=== PATIENT | male | born 1980 | race African-American/Black ===

== ENCOUNTER 2017-01-13 10:43 | Emergency (ER) | payer MEDICAID ==
[~2017-01-13] VITALS: Ht 175.3 cm; Wt 83.0 kg
[2017-01-13 12:08] LABS: BLOOD UREA NITROGEN 9 mg/dL (7-18)
[2017-01-13 12:38] VITALS: BP 159/106
== END 2017-01-13 12:41 | disposition home or self-care (01) ==
LOC: ED 11:16
DX: R00.2 Palpitations (principal)
CPT/HCPCS: 36415; 80048; 82040; 85025; 93005

== ENCOUNTER 2019-02-12 21:50 | Inpatient (IN) | payer MEDICAID ==
[~2019-02-12] VITALS: Ht 167.6 cm; Wt 89.8 kg
[2019-02-12 23:00] VITALS: BP_SYST 122; BP_SYST 128; BP_SYST 145; BP_DIAS 68; BP_DIAS 76; BP_DIAS 81
[2019-02-12] MEDS ORDERED: BISACODYL 10 MG SUPP PR PRN (23:00)
[2019-02-12] MEDS ORDERED: POLYETHYLENE GLYCOL 17 GM PACKET PO PRN (23:00)
[2019-02-12] MEDS ORDERED: ACETAMINOPHEN 325 MG TABLET PO PRN (23:00)
[2019-02-12] MEDS ORDERED: PLEASE ENTER ALLERGIES MC SCH (23:30)
[2019-02-12] MEDS ORDERED: PLEASE ENTER HEIGHT AND WEIGHT MC SCH (23:30)
[2019-02-12 23:46] LABS: BASOPHILS # (AUTO) 0.02 x10^3/uL (0-0.1); BASOPHILS % (AUTO) 0 % (0-1); EOSINOPHILS # (AUTO) 0.14 x10^3/uL (0-0.4); EOSINOPHILS % (AUTO) 3 % (1-7); LYMPHOCYTES # (AUTO) 1.85 x10^3/uL (1-3.4); LYMPHOCYTES % (AUTO) 35 % (22-44); MD NO; MEAN CORPUSCULAR HEMOGLOBIN 31.2 pg (27.5-34.5); MEAN CORPUSCULAR HGB CONC 32.7 g/dL (33.2-36.2); MEAN CORPUSCULAR VOLUME 95.5 fL (81-97); MEAN PLATELET VOLUME 6.5 fL (7.4-10.4); MONOCYTES # (AUTO) 0.53 x10^3/uL (0.2-0.8); MONOCYTES % (AUTO) 10 % (2-9); NEUTROPHILS # (AUTO) 2.76 x10^3/uL (1.8-6.8); NEUTROPHILS % (AUTO) 52 % (42-75); PLATELET COUNT 270 x10^3/uL (130-400); RED BLOOD COUNT 3.79 x10^6/uL (4.38-5.82); RED CELL DISTRIBUTION WIDTH 13.5 % (9.4-14.8)
[2019-02-13] LABS: ALBUMIN 3.5 g/dL (3.4-5.0); ANION GAP 9 mmol/L (5-15); CALCIUM 9.4 mg/dL (8.5-10.1); CHLORIDE 105 mmol/L (98-107)
[2019-02-13] MEDS ORDERED: HALOPERIDOL 1 MG TABLET PO SCH
[2019-02-13 00:05] VITALS: BP 122/68
[2019-02-13 00:07] LABS: ALANINE AMINOTRANSFERASE 21 U/L (12-78); ALKALINE PHOSPHATASE 56 U/L (45-117); BILIRUBIN,TOTAL 0.3 mg/dL (0.2-1.0); CHOL/HDL RATIO 3.5; CHOLESTEROL, TOTAL 101 mg/dL (140-239); FREE T4 (FREE THYROXINE) 0.89 ng/dL (0.76-1.46); HDL CHOL % 29 % (26-37); HDL CHOLESTEROL (DIRECT) 29 mg/dL (40-60); LDL CHOLESTEROL,CALCULATED 43 mg/dL (54-169); LDL/HDL RATIO 1.5 (0.5-3.0); TOTAL PROTEIN 7.3 g/dL (6.4-8.2); TRIGLYCERIDES 146 mg/dL (50-200); VLDL CHOLESTEROL 29 mg/dL (0-25)
[2019-02-13] MEDS ORDERED: HALOPERIDOL 2 MG/ML ORAL SOL PO SCH (00:30)
[2019-02-13 00:39] LABS: HCT (SEDRATE) 36.2 % (39.2-51.8)
[2019-02-13] MEDS: OLANZAPINE ODT 10MG PO SCH ×2 (00:44→21:48)
[2019-02-13] MEDS: DIVALPROEX 500 MG TAB.ER.24H PO SCH ×2 (00:44→21:49)
[2019-02-13] MEDS ORDERED: METF500T17 PO (02:17)
[2019-02-13] MEDS ORDERED: LEVO25TA2 PO (02:17)
[2019-02-13] MEDS ORDERED: ROSU20TA2 PO (02:17)
[2019-02-13] MEDS ORDERED: DIVA500T4 PO (02:17)
[2019-02-13] MEDS ORDERED: TRAZ-96 PO (02:17)
[2019-02-13] MEDS ORDERED: ASPI81TA45 PO (02:17)
[2019-02-13] MEDS ORDERED: OLAN10TA3 PO (02:17)
[2019-02-13] MEDS ORDERED: LISI10TA2 PO (02:17)
[2019-02-13] MEDS ORDERED: HALO5AMP3 PO (02:17)
[2019-02-13 06:14] LABS: MICROSCOPIC NOT IND
[2019-02-13 06:19] LABS: CULTURE INDICATED? NO
[2019-02-13 06:26] LABS: AMPHETAMINE SCREEN, URINE Negative (Negative); BARBITURATE SCREEN, URINE Negative (Negative); BENZODIAZEPINE SCREEN, URINE Negative (Negative); CANNABINOID SCREEN, URINE Negative (Negative); COCAINE SCREEN, URINE Negative (Negative); METHADONE SCREEN, URINE Negative (Negative); OPIATE SCREEN, URINE Negative (Negative)
[2019-02-13 07:31] VITALS: BP 115/72
[2019-02-13] MEDS: SENNA/DOCUSATE TABLET PO SCH (08:50)
[2019-02-13 19:18] VITALS: BP 133/83
[2019-02-13] MEDS: TRAZODONE 100MG TABLET PO SCH ×2 (21:00)
[2019-02-13] MEDS: HALOPERIDOL 2 MG/ML ORAL SOL PO SCH (21:49)
[2019-02-14] MEDS: LEVOTHYROXINE 25 MCG TABLET PO SCH (05:29)
[2019-02-14 07:09] VITALS: BP 119/80
[2019-02-14] MEDS: SENNA/DOCUSATE TABLET PO SCH (08:14)
[2019-02-14] MEDS: ASPIRIN 81 MG TABLET EC PO SCH (08:19)
[2019-02-14] MEDS: LISINOPRIL 10 MG TABLET PO SCH (08:19)
[2019-02-14] MEDS: metFORMIN 500 MG TABLET PO SCH (08:19)
[2019-02-14] MEDS: hydrOXyzine 50MG TABLET PO PRN (12:26)
[2019-02-14 19:19] VITALS: BP 131/75
[2019-02-14] MEDS: ATORVASTATIN 80 MG TABLET PO SCH (20:23)
[2019-02-14] MEDS: TRAZODONE 100MG TABLET PO SCH (20:23)
[2019-02-14] MEDS: OLANZAPINE ODT 10MG PO SCH (20:24)
[2019-02-14] MEDS: HALOPERIDOL 2 MG/ML ORAL SOL PO SCH (20:24)
[2019-02-14] MEDS: DIVALPROEX 500 MG TAB.ER.24H PO SCH (20:24)
[2019-02-15] MEDS: LEVOTHYROXINE 25 MCG TABLET PO SCH (05:37)
[2019-02-15 07:10] VITALS: BP 108/66
[2019-02-15] MEDS: SENNA/DOCUSATE TABLET PO SCH (08:45)
[2019-02-15] MEDS: metFORMIN 500 MG TABLET PO SCH (08:57)
[2019-02-15] MEDS: LISINOPRIL 10 MG TABLET PO SCH (08:57)
[2019-02-15] MEDS: ASPIRIN 81 MG TABLET EC PO SCH (08:57)
[2019-02-15 19:27] VITALS: BP 138/78
[2019-02-15] MEDS: ATORVASTATIN 80 MG TABLET PO SCH (20:22)
[2019-02-15] MEDS: HALOPERIDOL 2 MG/ML ORAL SOL PO SCH (20:22)
[2019-02-15] MEDS: TRAZODONE 100MG TABLET PO SCH (20:22)
[2019-02-15] MEDS: DIVALPROEX 500 MG TAB.ER.24H PO SCH (20:22)
[2019-02-15] MEDS: OLANZAPINE ODT 10MG PO SCH (20:23)
[2019-02-16] MEDS: LEVOTHYROXINE 25 MCG TABLET PO SCH (06:29)
[2019-02-16 07:28] VITALS: BP 114/65
[2019-02-16] MEDS: ASPIRIN 81 MG TABLET EC PO SCH (08:32)
[2019-02-16] MEDS: metFORMIN 500 MG TABLET PO SCH (08:33)
[2019-02-16] MEDS: LISINOPRIL 10 MG TABLET PO SCH (08:36)
[2019-02-16] MEDS: SENNA/DOCUSATE TABLET PO SCH (08:37)
[2019-02-16 19:39] VITALS: BP 121/73
[2019-02-16] MEDS: OLANZAPINE ODT 10MG PO SCH (19:45)
[2019-02-16] MEDS: DIVALPROEX 500 MG TAB.ER.24H PO SCH (19:45)
[2019-02-16] MEDS: TRAZODONE 100MG TABLET PO SCH (19:45)
[2019-02-16] MEDS: ATORVASTATIN 80 MG TABLET PO SCH (19:45)
[2019-02-16] MEDS: HALOPERIDOL 2 MG/ML ORAL SOL PO SCH (19:45)
[2019-02-17] MEDS: LEVOTHYROXINE 25 MCG TABLET PO SCH (06:17)
[2019-02-17 07:00] VITALS: BP 121/82
[2019-02-17] MEDS: SENNA/DOCUSATE TABLET PO SCH (08:23)
[2019-02-17] MEDS: LISINOPRIL 10 MG TABLET PO SCH (08:34)
[2019-02-17] MEDS: ASPIRIN 81 MG TABLET EC PO SCH (08:34)
[2019-02-17] MEDS: metFORMIN 500 MG TABLET PO SCH (08:34)
[2019-02-17] MEDS ORDERED: METF500T17 PO (13:03)
[2019-02-17] MEDS ORDERED: TRAZ-137 PO (13:03)
[2019-02-17] MEDS ORDERED: LEVO25TA2 PO (13:03)
[2019-02-17] MEDS ORDERED: ASPI81TA45 PO (13:03)
[2019-02-17] MEDS ORDERED: ATOR-2 PO (13:03)
[2019-02-17] MEDS ORDERED: OLAN10TA7 PO (13:03)
[2019-02-17] MEDS ORDERED: HYDR50TA13 PO (13:03)
[2019-02-17] MEDS ORDERED: SENN1TAB19 PO (13:03)
[2019-02-17] MEDS ORDERED: DIVA500T4 PO (13:03)
[2019-02-17] MEDS ORDERED: LISI-167 PO (13:03)
[2019-02-17 19:38] VITALS: BP 149/93
[2019-02-17] MEDS: TRAZODONE 100MG TABLET PO SCH (20:07)
[2019-02-17] MEDS: HALOPERIDOL 2 MG/ML ORAL SOL PO SCH (20:07)
[2019-02-17] MEDS: DIVALPROEX 500 MG TAB.ER.24H PO SCH (20:07)
[2019-02-17] MEDS: ATORVASTATIN 80 MG TABLET PO SCH (20:08)
[2019-02-17] MEDS: OLANZAPINE ODT 10MG PO SCH (20:08)
[2019-02-17] MEDS: hydrOXyzine 50MG TABLET PO PRN (22:58)
[2019-02-18] MEDS: LEVOTHYROXINE 25 MCG TABLET PO SCH (05:54)
[2019-02-18 07:28] VITALS: BP 131/83
[2019-02-18] MEDS: ASPIRIN 81 MG TABLET EC PO SCH (08:08)
[2019-02-18] MEDS: SENNA/DOCUSATE TABLET PO SCH (08:08)
[2019-02-18] MEDS: LISINOPRIL 10 MG TABLET PO SCH (08:08)
[2019-02-18] MEDS: metFORMIN 500 MG TABLET PO SCH (08:08)
== END 2019-02-18 09:05 | disposition home or self-care (01) | DRG 885 ==
LOC: 3E 23:07
PROVIDERS: ADMIT Psychiatry & Neurology Psychosomatic Medicine; ATTEND Psychiatry & Neurology Psychosomatic Medicine
DX: F25.0 Schizoaffective disorder, bipolar type (principal); R45.851 Suicidal ideations; E03.9 Hypothyroidism, unspecified; E11.9 Type 2 diabetes mellitus without complications; E78.5 Hyperlipidemia, unspecified; G47.00 Insomnia, unspecified; I10 Essential (primary) hypertension; I25.10 Atherosclerotic heart disease of native coronary artery without angina pectoris; G40.909 Epilepsy, unspecified, not intractable, without status epilepticus; K59.00 Constipation, unspecified; Z79.82 Long term (current) use of aspirin; Z79.899 Other long term (current) drug therapy; Z91.5 Personal history of self-harm; Z88.0 Allergy status to penicillin; Z79.84 Long term (current) use of oral hypoglycemic drugs
CPT/HCPCS: 36415; 71045; 80053; 80061; 80164; 80307; 81003; 82140; 84439; 84443; 85025; 85651; 86592; 93005

== ENCOUNTER 2019-07-16 14:43 | Emergency (ER) | payer MEDICAID ==
[~2019-07-16] VITALS: Ht 177.8 cm; Wt 95.0 kg
[~2019-07-16 14:43] MED LIST: ASPI81TA45 PO; ATOR-2 PO; DIVA500T4 PO; HALO5AMP3 PO; HYDR50TA13 PO; LEVO25TA2 PO; LISI-167 PO; LISI10TA2 PO; METF500T17 PO; OLAN10TA3 PO; OLAN10TA7 PO; ROSU20TA2 PO; SENN-193 PO; TRAZ-137 PO; TRAZ-96 PO
[2019-07-16 15:29] LABS: BASOPHILS # (AUTO) 0.01 x10^3/uL (0-0.1); BASOPHILS % (AUTO) 0 % (0-1); EOSINOPHILS # (AUTO) 0.07 x10^3/uL (0-0.4); EOSINOPHILS % (AUTO) 1 % (1-7); LYMPHOCYTES # (AUTO) 1.64 x10^3/uL (1-3.4); LYMPHOCYTES % (AUTO) 28 % (22-44); MD NO; MEAN CORPUSCULAR HEMOGLOBIN 31.5 pg (27.5-34.5); MEAN CORPUSCULAR HGB CONC 32.7 g/dL (33.2-36.2); MEAN CORPUSCULAR VOLUME 96.4 fL (81-97); MONOCYTES # (AUTO) 0.35 x10^3/uL (0.2-0.8); MONOCYTES % (AUTO) 6 % (2-9); NEUTROPHILS # (AUTO) 3.71 x10^3/uL (1.8-6.8); NEUTROPHILS % (AUTO) 64 % (42-75); PLATELET COUNT 293 x10^3/uL (130-400); RED BLOOD COUNT 4.05 x10^6/uL (4.38-5.82); RED CELL DISTRIBUTION WIDTH 14.3 % (9.4-14.8)
[2019-07-16 15:40] LABS: ALANINE AMINOTRANSFERASE 25 U/L (12-78); ALBUMIN 3.4 g/dL (3.4-5.0); ANION GAP 9 mmol/L (5-15); CALCIUM 8.8 mg/dL (8.5-10.1); CHLORIDE 106 mmol/L (98-107)
[2019-07-16 15:43] LABS: ALKALINE PHOSPHATASE 55 U/L (45-117); BILIRUBIN,TOTAL 0.3 mg/dL (0.2-1.0); CREATININE 1.11 mg/dL (0.7-1.3); SALICYLATE LEVEL < 1.7 mg/dL (2.8-20.0); TOTAL PROTEIN 7.3 g/dL (6.4-8.2)
--- NOTE | 2019-07-16 15:46 | NUR ---
PT CALLED 911 BECAUSE HE WAS HAVING SI AND HALLUCINATIONS TELLING HIM TO HURT HIMSELF. PT HAD 1 WHITE PT BAG AND 1 BLACK BACK PACK - BOTH ARE LOCKED UP. PT IS IN SI SECURED ROOM IN HOSPITAL BED AND SITTER IS OUTFRONT. DOES TAKE HIS MEDS HE IS PRESCRIBED.
--- NOTE | 2019-07-16 16:14 | NUR ---
TEOFILO MILLER EVALUATING PT FOR PSYCH EVAL. PT BEING OBSERVED BY BETHEL.
[2019-07-16 16:15] LABS: AMPHETAMINE SCREEN, URINE Negative (Negative); BARBITURATE SCREEN, URINE Negative (Negative); BENZODIAZEPINE SCREEN, URINE Negative (Negative); CANNABINOID SCREEN, URINE Negative (Negative); COCAINE SCREEN, URINE Negative (Negative); METHADONE SCREEN, URINE Negative (Negative); OPIATE SCREEN, URINE Negative (Negative)
[2019-07-16] MEDS ORDERED: HALOPERIDOL 2 MG TABLET PO PRN (16:30)
[2019-07-16 17:53] VITALS: BP 158/98
--- NOTE | 2019-07-16 17:53 | NUR ---
PT RESTING IN HOSPITAL BED. SI PRECAUTIONS IN PLACE IN SI EQUIPPED ROOM. AWAITING TO BE TRANSFERED TO .
== END 2019-07-16 18:38 | disposition home or self-care (01) ==
LOC: ED 18:02
DX: F31.89 Other bipolar disorder (principal); F25.8 Other schizoaffective disorders; R45.851 Suicidal ideations; I10 Essential (primary) hypertension; E11.9 Type 2 diabetes mellitus without complications
CPT/HCPCS: 36415; 80053; 80307; 85025; 99284

== ENCOUNTER 2019-07-16 17:23 | Inpatient (IN) | payer MEDICAID ==
[~2019-07-16] VITALS: Ht 177.8 cm; Wt 86.8 kg
[2019-07-16] MEDS ORDERED: POLYETHYLENE GLYCOL 17 GM PACKET PO PRN (18:00)
[2019-07-16] MEDS ORDERED: DOCUSATE 100 MG CAPSULE PO PRN (18:00)
[2019-07-16] MEDS ORDERED: ONDANSETRON ODT 4 MG PO PRN (18:00)
[2019-07-16] MEDS ORDERED: BISACODYL 10 MG SUPP PR PRN (18:00)
[2019-07-16 18:45] VITALS: BP 186/105
[2019-07-16 19:49] VITALS: BP 186/105
[2019-07-16 20:00] VITALS: BP 150/90
[2019-07-16 20:04] LABS: MICROSCOPIC NOT IND
[2019-07-16 20:15] LABS: CULTURE INDICATED? NO
[2019-07-16] MEDS ORDERED: OLANZAPINE 10 MG TABLET PO SCH (21:00)
[2019-07-16] MEDS ORDERED: TRAZODONE 50MG TABLET PO SCH (21:00)
[2019-07-16] MEDS ORDERED: DIVALPROEX 500 MG TAB.ER.24H PO SCH (21:00)
[2019-07-16] MEDS ORDERED: HALOPERIDOL 2 MG TABLET PO SCH (21:00)
[2019-07-16] MEDS: MELATONIN 3 MG TABLET PO SCH (21:13)
[2019-07-16] MEDS: OLANZAPINE 10 MG TABLET PO SCH (21:13)
[2019-07-16] MEDS: ATORVASTATIN 80 MG TABLET PO SCH (21:13)
[2019-07-17] MEDS: LEVOTHYROXINE 25 MCG TABLET PO SCH (06:27)
[2019-07-17] MEDS: ASPIRIN 81 MG TABLET EC PO SCH (06:27)
[2019-07-17 07:13] VITALS: BP 148/90
[2019-07-17] MEDS: LISINOPRIL 10 MG TABLET PO SCH (08:17)
[2019-07-17] MEDS: metFORMIN 500 MG TABLET PO SCH (08:17)
[2019-07-17 19:36] VITALS: BP 130/77
[2019-07-17] MEDS: ATORVASTATIN 80 MG TABLET PO SCH (20:37)
[2019-07-17] MEDS: DIVALPROEX 250 MG TAB.ER.24H PO SCH (20:37)
[2019-07-17] MEDS: HALOPERIDOL 2 MG TABLET PO SCH (20:38)
[2019-07-17] MEDS: OLANZAPINE 10 MG TABLET PO SCH (20:38)
[2019-07-17] MEDS: MELATONIN 3 MG TABLET PO SCH (20:38)
[2019-07-18] MEDS: ASPIRIN 81 MG TABLET EC PO SCH (06:25)
[2019-07-18] MEDS: LEVOTHYROXINE 25 MCG TABLET PO SCH (06:25)
[2019-07-18 07:03] VITALS: BP 157/94
[2019-07-18] MEDS: LISINOPRIL 10 MG TABLET PO SCH (08:05)
[2019-07-18] MEDS: metFORMIN 500 MG TABLET PO SCH (08:05)
[2019-07-18 19:40] VITALS: BP 142/83
[2019-07-18] MEDS: ATORVASTATIN 80 MG TABLET PO SCH (20:15)
[2019-07-18] MEDS: HALOPERIDOL 2 MG TABLET PO SCH (20:15)
[2019-07-18] MEDS: OLANZAPINE 10 MG TABLET PO SCH (20:15)
[2019-07-18] MEDS: DIVALPROEX 250 MG TAB.ER.24H PO SCH (20:15)
[2019-07-18] MEDS: MELATONIN 3 MG TABLET PO SCH (20:16)
[2019-07-19] MEDS: ASPIRIN 81 MG TABLET EC PO SCH (06:04)
[2019-07-19] MEDS: metFORMIN 500 MG TABLET PO SCH (06:04)
[2019-07-19] MEDS: LEVOTHYROXINE 25 MCG TABLET PO SCH (06:05)
[2019-07-19 07:45] VITALS: BP 127/78
[2019-07-19] MEDS: LISINOPRIL 10 MG TABLET PO SCH (09:36)
[2019-07-19] MEDS: ACETAMINOPHEN 325 MG TABLET PO PRN ×2 (09:43→14:48)
[2019-07-19] MEDS ORDERED: NAPROXEN 500 MG TABLET PO PRN (12:00)
[2019-07-19] MEDS: hydrOXyzine 50MG TABLET PO PRN ×2 (12:11→20:14)
[2019-07-19 19:58] VITALS: BP 157/93
[2019-07-19] MEDS: HALOPERIDOL 2 MG TABLET PO SCH (20:13)
[2019-07-19] MEDS: OLANZAPINE 10 MG TABLET PO SCH (20:14)
[2019-07-19] MEDS: DIVALPROEX 250 MG TAB.ER.24H PO SCH (20:14)
[2019-07-19] MEDS: ATORVASTATIN 80 MG TABLET PO SCH (20:14)
[2019-07-19] MEDS: MELATONIN 3 MG TABLET PO SCH (20:14)
[2019-07-20] MEDS: LEVOTHYROXINE 25 MCG TABLET PO SCH (05:39)
[2019-07-20] MEDS: ASPIRIN 81 MG TABLET EC PO SCH (05:39)
[2019-07-20 07:29] VITALS: BP 138/99
[2019-07-20] MEDS: metFORMIN 500 MG TABLET PO SCH (08:18)
[2019-07-20] MEDS: LISINOPRIL 10 MG TABLET PO SCH (08:18)
[2019-07-20] MEDS ORDERED: DIVA250T PO (14:56)
[2019-07-20] MEDS ORDERED: HALO2TAB PO (14:56)
[2019-07-20] MEDS ORDERED: ATOR-2 PO (14:56)
[2019-07-20] MEDS ORDERED: LEVO25TA2 PO (14:56)
[2019-07-20] MEDS ORDERED: LISI-167 PO (14:56)
[2019-07-20] MEDS ORDERED: OLAN10TA9 PO (14:56)
[2019-07-20] MEDS ORDERED: MELA3TAB56 PO (14:56)
[2019-07-20] MEDS ORDERED: ASPI81TA45 PO (14:56)
[2019-07-20] MEDS ORDERED: HYDR50TA13 PO (14:56)
[2019-07-20] MEDS ORDERED: METF500T PO (14:56)
[2019-07-20 19:41] VITALS: BP 177/95
[2019-07-20] MEDS: hydrOXyzine 50MG TABLET PO PRN (19:54)
[2019-07-20] MEDS: OLANZAPINE 10 MG TABLET PO SCH (19:54)
[2019-07-20] MEDS: DIVALPROEX 250 MG TAB.ER.24H PO SCH (19:54)
[2019-07-20] MEDS: HALOPERIDOL 2 MG TABLET PO SCH (19:54)
[2019-07-20] MEDS: ATORVASTATIN 80 MG TABLET PO SCH (19:54)
[2019-07-20] MEDS: MELATONIN 3 MG TABLET PO SCH (19:54)
[2019-07-20 20:56] VITALS: BP 143/87
[2019-07-21] MEDS: ASPIRIN 81 MG TABLET EC PO SCH (05:07)
[2019-07-21] MEDS: LEVOTHYROXINE 25 MCG TABLET PO SCH (05:07)
[2019-07-21 07:28] VITALS: BP 136/65
[2019-07-21] MEDS: metFORMIN 500 MG TABLET PO SCH (08:52)
[2019-07-21] MEDS: LISINOPRIL 10 MG TABLET PO SCH (08:52)
== END 2019-07-21 10:15 | disposition home or self-care (01) | DRG 750 ==
LOC: 3E 18:34
PROVIDERS: ADMIT Psychiatry & Neurology Psychosomatic Medicine; ATTEND Psychiatry & Neurology Psychosomatic Medicine
DX: F25.0 Schizoaffective disorder, bipolar type (principal); R45.851 Suicidal ideations; E11.9 Type 2 diabetes mellitus without complications; E03.9 Hypothyroidism, unspecified; E78.00 Pure hypercholesterolemia, unspecified; E78.5 Hyperlipidemia, unspecified; F41.9 Anxiety disorder, unspecified; G40.909 Epilepsy, unspecified, not intractable, without status epilepticus; G47.00 Insomnia, unspecified; I10 Essential (primary) hypertension; I25.10 Atherosclerotic heart disease of native coronary artery without angina pectoris; Z79.82 Long term (current) use of aspirin; Z83.3 Family history of diabetes mellitus
CPT/HCPCS: 81003; Q0162

== ENCOUNTER 2019-09-02 00:52 | Emergency (ER) | payer MEDICAID ==
[~2019-09-02] VITALS: Ht 177.8 cm; Wt 96.0 kg
[~2019-09-02 00:52] MED LIST changes: +DIVA250T PO; +HALO2TAB PO; +MELA3TAB56 PO; +METF500T PO; +OLAN10TA9 PO
[2019-09-02] MEDS ORDERED: LORazepam 1MG TABLET ONE (01:26)
[2019-09-02] MEDS ORDERED: LORazepam 1MG TABLET PO ONE (01:30)
[2019-09-02 01:47] LABS: BASOPHILS # (AUTO) 0.04 x10^3/uL (0-0.1); BASOPHILS % (AUTO) 0 % (0-1); EOSINOPHILS # (AUTO) 0.09 x10^3/uL (0-0.4); EOSINOPHILS % (AUTO) 1 % (1-7); LYMPHOCYTES # (AUTO) 1.72 x10^3/uL (1-3.4); LYMPHOCYTES % (AUTO) 19 % (22-44); MD NO; MEAN CORPUSCULAR HEMOGLOBIN 30.9 pg (27.5-34.5); MEAN CORPUSCULAR VOLUME 93.6 fL (81-97); MEAN PLATELET VOLUME 6.9 fL (7.4-10.4); MONOCYTES # (AUTO) 1.05 x10^3/uL (0.2-0.8); MONOCYTES % (AUTO) 12 % (2-9); NEUTROPHILS # (AUTO) 6.03 x10^3/uL (1.8-6.8); NEUTROPHILS % (AUTO) 68 % (42-75); PLATELET COUNT 297 x10^3/uL (130-400); RED CELL DISTRIBUTION WIDTH 13.9 % (9.4-14.8)
[2019-09-02 01:59] LABS: ALANINE AMINOTRANSFERASE 21 U/L (12-78); ALBUMIN 3.8 g/dL (3.4-5.0); ANION GAP 6 mmol/L (5-15); CHLORIDE 108 mmol/L (98-107); CREATININE 1.27 mg/dL (0.7-1.3)
[2019-09-02 02:01] LABS: ALKALINE PHOSPHATASE 65 U/L (45-117); BILIRUBIN,TOTAL 0.5 mg/dL (0.2-1.0); SALICYLATE LEVEL < 1.7 mg/dL (2.8-20.0)
--- NOTE | 2019-09-02 03:23 | NUR ---
BREAK RN: PT. RESTING ON GURNEY IN POSITION WITH EYES CLOSED. REPIRATIONS VISIBLE AND NON-LABORED. PT. TO MOVE TO ED38 FOR SECURED ROOM WHEN IT'S READY. PT. AWAITING TELEPSYCH EVAL.
--- NOTE | 2019-09-02 03:26 | NUR ---
BREAK RN: WOKE PT. AND PROVIDED WITH URINAL; URINE SAMPLE REQUESTED.
--- NOTE | 2019-09-02 04:39 | NUR ---
TELE PSYCH COMPLETE. PT MOVED TO SAFE ROOM WITH SITTER IN HALLWAY. PT BELONGINGS (2 BAGS & BACKPACK) BAGGED AND TAGGED AND PLACED IN SECURE LOCKER. PT RESTING WITH EYES CLOSED. NO NEEDS AT THIS TIME.
[2019-09-02 05:42] VITALS: BP 161/90
== END 2019-09-02 05:45 | disposition home or self-care (01) ==
LOC: ED 02:06
DX: F20.0 Paranoid schizophrenia (principal); I10 Essential (primary) hypertension; E11.9 Type 2 diabetes mellitus without complications
CPT/HCPCS: 36415; 80053; 80307; 85025; 99284

== ENCOUNTER 2019-10-27 13:23 | Emergency (ER) | payer MEDICAID ==
[~2019-10-27] VITALS: Ht 177.8 cm; Wt 91.0 kg
[~2019-10-27 13:23] MED LIST changes: -HYDR50TA13 PO; +HYDR50TA99 PO; -TRAZ-137 PO; +TRAZ-175 PO
[2019-10-27 13:54] VITALS: BP 170/117
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
[2019-10-27 14:12] LABS: ALANINE AMINOTRANSFERASE 49 U/L (12-78); ALBUMIN 3.7 g/dL (3.4-5.0); ANION GAP 7 mmol/L (5-15); CALCIUM 8.8 mg/dL (8.5-10.1); CHLORIDE 105 mmol/L (98-107); CREATININE 0.98 mg/dL (0.7-1.3)
[2019-10-27 14:13] LABS: SALICYLATE LEVEL < 1.7 mg/dL (2.8-20.0)
[2019-10-27 14:14] LABS: AMPHETAMINE SCREEN, URINE Negative (Negative); BARBITURATE SCREEN, URINE Negative (Negative); BENZODIAZEPINE SCREEN, URINE Negative (Negative); CANNABINOID SCREEN, URINE Negative (Negative); COCAINE SCREEN, URINE Negative (Negative); METHADONE SCREEN, URINE Negative (Negative); OPIATE SCREEN, URINE Negative (Negative)
[2019-10-27 14:23] LABS: ALKALINE PHOSPHATASE 71 U/L (45-117); BILIRUBIN,TOTAL 0.5 mg/dL (0.2-1.0); TOTAL PROTEIN 7.9 g/dL (6.4-8.2)
[2019-10-27 14:24] LABS: MEAN CORPUSCULAR HEMOGLOBIN 31.8 pg (27.5-34.5); MEAN CORPUSCULAR HGB CONC 33.9 g/dL (33.2-36.2); MEAN CORPUSCULAR VOLUME 93.8 fL (81-97); MEAN PLATELET VOLUME 6.4 fL (7.4-10.4); PLATELET COUNT 393 x10^3/uL (130-400); RED CELL DISTRIBUTION WIDTH 14.4 % (9.4-14.8)
--- NOTE | 2019-10-27 14:42 | NUR ---
Pt sitting on [facility] in room secured for SI/HI. Sitte rnear doorway in direct line of sight for observation. Pt has unlabored respirations with even chest rise and fall. Pt requests water and food. Food tray order upgraded to STAT order and pt provided water. No other needs requested at this time. Pending visit with Psych CORINA.
[2019-10-27 14:52] LABS: BASOPHILS # (AUTO) 0.02 x10^3/uL (0-0.1); BASOPHILS % (AUTO) 0 % (0-1); EOSINOPHILS # (AUTO) 0.13 x10^3/uL (0-0.4); EOSINOPHILS % (AUTO) 2 % (1-7); LYMPHOCYTES # (AUTO) 1.49 x10^3/uL (1-3.4); LYMPHOCYTES % (AUTO) 25 % (22-44); MD SCAN; MONOCYTES # (AUTO) 0.25 x10^3/uL (0.2-0.8); MONOCYTES % (AUTO) 4 % (2-9); NEUTROPHILS # (AUTO) 4.04 x10^3/uL (1.8-6.8); NEUTROPHILS % (AUTO) 68 % (42-75)
--- NOTE | 2019-10-27 15:11 | NUR ---
pt detention: Yannadar Kempton / Salena Arenas [phone]
--- NOTE | 2019-10-27 17:17 | NUR ---
LATE NOTE ENTRY DUE TO PT CARE. Patient given discharge instructions and they have confirmed that they understand the instructions. Patient ambulatory with steady gait. Pt left with d/c paperwork and all personal belongings. Pt left with [employer] back to senior care.
== END 2019-10-27 17:22 | disposition home or self-care (01) ==
LOC: ED 14:07
DX: R45.851 Suicidal ideations (principal); F32.9 Major depressive disorder, single episode, unspecified; F43.0 Acute stress reaction; F25.9 Schizoaffective disorder, unspecified; I10 Essential (primary) hypertension; E11.9 Type 2 diabetes mellitus without complications
CPT/HCPCS: 36415; 80053; 80307; 84443; 85025; 93005; 99284

== ENCOUNTER 2020-01-11 00:13 | Emergency (ER) | payer MEDICAID ==
[~2020-01-11] VITALS: Ht 177.8 cm; Wt 87.0 kg
[~2020-01-11 00:13] MED LIST changes: +MELA3TAB31 PO; -MELA3TAB56 PO
--- NOTE | 2020-01-11 00:25 | NUR ---
PT BIB [facility] FOR CP ONSET OF 20 MINS AGO, PT STATING "SUDDEN INABILITY TO MOVE" UPON ARRIVAL TO ER, DURING PHYSICAL PT ABLE TO MOVE ALL EXTREMITIES UPON COMMAND. VSS, NAD, RESP WNL, SKIN COLOR WNL WARM AND DRY. ASPIRIN 324 MG ENROUTE, 1 NITRO, NO CHANGE IN CP PT HAS INTACT PULSES, NO SOB, CAP REFILL< 3, DENIES ADDITIONAL NEEDS AT THIS TIME, CALL LIGHT ON LAP, WCTM
--- NOTE | 2020-01-11 00:26 | NUR ---
AMPARO REYES AT FOR EVAL AND POC
[2020-01-11 00:58] LABS: BASOPHILS # (AUTO) 0.02 x10^3/uL (0-0.1); BASOPHILS % (AUTO) 0 % (0-1); EOSINOPHILS % (AUTO) 2 % (1-7); LYMPHOCYTES # (AUTO) 1.73 x10^3/uL (1-3.4); LYMPHOCYTES % (AUTO) 34 % (22-44); MD NO; MEAN CORPUSCULAR HEMOGLOBIN 30.3 pg (27.5-34.5); MEAN CORPUSCULAR HGB CONC 32.5 g/dL (33.2-36.2); MEAN CORPUSCULAR VOLUME 93.3 fL (81-97); MEAN PLATELET VOLUME 6.3 fL (7.4-10.4); MONOCYTES # (AUTO) 0.24 x10^3/uL (0.2-0.8); MONOCYTES % (AUTO) 5 % (2-9); NEUTROPHILS # (AUTO) 3.05 x10^3/uL (1.8-6.8); NEUTROPHILS % (AUTO) 59 % (42-75); PLATELET COUNT 385 x10^3/uL (130-400); RED BLOOD COUNT 4.56 x10^6/uL (4.38-5.82); RED CELL DISTRIBUTION WIDTH 13.7 % (9.4-14.8)
[2020-01-11 01:06] LABS: ALBUMIN 3.8 g/dL (3.4-5.0); ANION GAP 7 mmol/L (5-15); CHLORIDE 106 mmol/L (98-107); CREATININE 0.99 mg/dL (0.7-1.3)
[2020-01-11 01:10] LABS: TROPONIN I < 0.015 ng/mL (0.000-0.045)
[2020-01-11 01:14] VITALS: BP 140/88
--- NOTE | 2020-01-11 01:16 | NUR ---
pt given crackers, peanut butter, sprite, juice and water per request as well as additional blankets. pt is resting in gurney, eyes close, NAD, VSS, skin color WNL warm and dry, lights dimmed for comfort, WCTM. waiting on recheck
--- NOTE | 2020-01-11 01:34 | NUR ---
Patient given discharge instructions and they have confirmed that they understand the instructions. Patient ambulatory with steady gait. Denies additional questions or needs at this time, given taxi voucher. NAD, VSS, Skin color WNL warm and dry. Pt left with all personal belongings.
== END 2020-01-11 01:48 | disposition home or self-care (01) ==
LOC: ED 01:40
DX: R07.89 Other chest pain (principal); F20.9 Schizophrenia, unspecified; I49.3 Ventricular premature depolarization; I10 Essential (primary) hypertension; E11.9 Type 2 diabetes mellitus without complications
CPT/HCPCS: 36415; 71045; 80048; 82040; 84484; 85025; 93005; 99285

== ENCOUNTER 2020-02-21 20:36 | Emergency (ER) | payer MEDICAID ==
[~2020-02-21] VITALS: Ht 175.3 cm; Wt 85.0 kg
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
[2020-02-21 21:13] LABS: AMPHETAMINE SCREEN, URINE Negative (Negative); BARBITURATE SCREEN, URINE Negative (Negative); BENZODIAZEPINE SCREEN, URINE Negative (Negative); CANNABINOID SCREEN, URINE Negative (Negative); COCAINE SCREEN, URINE Negative (Negative); METHADONE SCREEN, URINE Negative (Negative); OPIATE SCREEN, URINE Negative (Negative)
[2020-02-21 21:16] LABS: MICROSCOPIC NOT IND
[2020-02-21 21:21] LABS: ALANINE AMINOTRANSFERASE 23 U/L (12-78); ALBUMIN 3.9 g/dL (3.4-5.0); ANION GAP 4 mmol/L (5-15); CALCIUM 9.6 mg/dL (8.5-10.1); CHLORIDE 106 mmol/L (98-107); CREATININE 1.08 mg/dL (0.7-1.3); SALICYLATE LEVEL < 1.7 mg/dL (2.8-20.0)
[2020-02-21 21:23] LABS: BASOPHILS # (AUTO) 0.03 x10^3/uL (0-0.1); BASOPHILS % (AUTO) 1 % (0-1); EOSINOPHILS # (AUTO) 0.13 x10^3/uL (0-0.4); EOSINOPHILS % (AUTO) 2 % (1-7); LYMPHOCYTES # (AUTO) 2.15 x10^3/uL (1-3.4); LYMPHOCYTES % (AUTO) 31 % (22-44); MD NO; MEAN CORPUSCULAR HEMOGLOBIN 30.7 pg (27.5-34.5); MEAN CORPUSCULAR HGB CONC 33.3 g/dL (33.2-36.2); MEAN CORPUSCULAR VOLUME 92.2 fL (81-97); MEAN PLATELET VOLUME 6.5 fL (7.4-10.4); MONOCYTES # (AUTO) 0.44 x10^3/uL (0.2-0.8); MONOCYTES % (AUTO) 6 % (2-9); NEUTROPHILS # (AUTO) 4.16 x10^3/uL (1.8-6.8); NEUTROPHILS % (AUTO) 60 % (42-75); PLATELET COUNT 399 x10^3/uL (130-400); RED BLOOD COUNT 4.56 x10^6/uL (4.38-5.82); RED CELL DISTRIBUTION WIDTH 13.7 % (9.4-14.8)
[2020-02-21 21:31] LABS: ALKALINE PHOSPHATASE 67 U/L (45-117); BILIRUBIN,TOTAL 0.5 mg/dL (0.2-1.0); TOTAL PROTEIN 8.1 g/dL (6.4-8.2)
[2020-02-21 21:46] LABS: FREE T4 (FREE THYROXINE) 0.99 ng/dL (0.76-1.46)
--- NOTE | 2020-02-21 22:00 | NUR ---
PT GIVEN SPRITE & BLANKET. DENIES ANY NEEDS. CALM & COOPERATIVE. WILL CTM.
--- NOTE | 2020-02-21 23:00 | NUR ---
PT SLEEPING ON CART IN NAD. RR EVEN NON LABORED. WILL CTM.
--- NOTE | 2020-02-22 | NUR ---
PT SLEEPING ON CART. RR EVEN NON LABORED. WILL CTM.
--- NOTE | 2020-02-22 01:56 | NUR ---
PT SLEEPING ON CART. NAD. RR EVEN NON LABORED. WILL CTM.
--- NOTE | 2020-02-22 02:39 | NUR ---
PT CALM & COOPERATIVE. PT GIVEN POP & SANDWICH. DENIES ANY OTHER NEEDS. WILL CTM.
--- NOTE | 2020-02-22 03:30 | NUR ---
MT: PSYCH SAMARA FAXED TO [facility] AND NAGI ELIZABETH
--- NOTE | 2020-02-22 03:41 | NUR ---
PT WATCHING TV. POP PROVIDED. WILL CTM.
--- NOTE | 2020-02-22 05:37 | NUR ---
PT RESTING C EYES CLOSED. RR EVEN NON LABORED. NAD. WILL CTM.
--- NOTE | 2020-02-22 06:52 | NUR ---
RECEIVED REPORT FROM ESTRELLA HARRISON, PLAN OF CARE DISCUSSED
--- NOTE | 2020-02-22 07:12 | NUR ---
PT PLEASANT AND COOPERTIVE, REQUESTED SODA AND MEAL. ORDERED MEAL. PT DENIES SI/SA AT THIS TIME.
[2020-02-22 07:14] VITALS: BP 155/63
--- NOTE | 2020-02-22 08:51 | NUR ---
LATE ENTRY FOR 729 DIET TRAY DELIVERED
--- NOTE | 2020-02-22 09:49 | NUR ---
REPORT TO Tiny RN, PLAN OF CARE DISCUSSED.
--- NOTE | 2020-02-22 10:35 | NUR ---
PT TRANSFERRED TO FLOOR. ALL PERSONAL BELONGINGS. WITH PT.
[2020-02-22] MEDS ORDERED: ESCI10TA10 PO (16:06)
[2020-02-22] MEDS ORDERED: TEMA30CA PO (16:06)
[2020-02-22] MEDS ORDERED: PALI156D IM (16:06)
[2020-02-22] MEDS ORDERED: HALO5TAB5 PO (16:06)
[2020-02-22] MEDS ORDERED: CARI3CAP PO (16:06)
[2020-02-22] MEDS ORDERED: ESCI20TA10 PO (16:06)
== END 2020-02-22 10:36 ==
LOC: ED 02-22 04:34
DX: R44.0 Auditory hallucinations (principal); R45.851 Suicidal ideations; I10 Essential (primary) hypertension; E11.9 Type 2 diabetes mellitus without complications
CPT/HCPCS: 36415; 80053; 80307; 81003; 84439; 84443; 85025; 99285

== ENCOUNTER 2020-02-22 10:32 | Inpatient (IN) | payer MEDICAID ==
[~2020-02-22] VITALS: Ht 177.8 cm; Wt 82.1 kg
[2020-02-22 10:30] VITALS: BP 122/83
[2020-02-22] MEDS ORDERED: ACETAMINOPHEN 325 MG TABLET PO PRN (11:30)
[2020-02-22] MEDS ORDERED: DOCUSATE 100 MG CAPSULE PO PRN (11:30)
[2020-02-22] MEDS ORDERED: ONDANSETRON ODT 4 MG PO PRN (11:30)
[2020-02-22] MEDS ORDERED: BISACODYL 10 MG SUPP PR PRN (11:30)
[2020-02-22] MEDS ORDERED: POLYETHYLENE GLYCOL 17 GM PACKET PO PRN (11:30)
[2020-02-22] MEDS ORDERED: PLEASE ENTER HEIGHT AND WEIGHT MC SCH (12:00)
[2020-02-22 12:34] LABS: CHOL/HDL RATIO 4.1; FREE T4 (FREE THYROXINE) 0.97 ng/dL (0.76-1.46); LDL/HDL RATIO 2.2 (0.5-3.0)
[2020-02-22 15:15] VITALS: BP 122/83
[2020-02-22] MEDS ORDERED: CARI3CAP PO (16:06)
[2020-02-22] MEDS ORDERED: HALO5TAB5 PO (16:06)
[2020-02-22] MEDS ORDERED: PALI156D IM (16:06)
[2020-02-22] MEDS ORDERED: ESCI10TA10 PO (16:06)
[2020-02-22] MEDS ORDERED: ESCI20TA10 PO (16:06)
[2020-02-22] MEDS ORDERED: TEMA30CA PO (16:06)
[2020-02-22 19:20] VITALS: BP 146/80
[2020-02-22] MEDS: ATORVASTATIN 80 MG TABLET PO SCH (19:57)
[2020-02-22] MEDS: hydrOXyzine 50MG TABLET PO PRN (19:58)
[2020-02-22] MEDS: DIVALPROEX 250 MG TABLET.DR PO SCH (19:58)
[2020-02-23] MEDS: LEVOTHYROXINE 50 MCG TABLET PO SCH (05:49)
[2020-02-23 06:31] VITALS: BP 110/67
[2020-02-23] MEDS: LISINOPRIL 10 MG TABLET PO SCH (08:37)
[2020-02-23] MEDS: ASPIRIN 81 MG TABLET EC PO SCH (08:37)
[2020-02-23] MEDS: metFORMIN 500 MG TABLET PO SCH (08:37)
[2020-02-23] MEDS ORDERED: PALIPERIDONE PALMITATE 156 MG/ML IM ONE (14:30)
[2020-02-23 19:40] VITALS: BP 109/62
[2020-02-23] MEDS: DIVALPROEX 250 MG TABLET.DR PO SCH (20:08)
[2020-02-23] MEDS: ATORVASTATIN 80 MG TABLET PO SCH (20:08)
[2020-02-24] MEDS: LEVOTHYROXINE 50 MCG TABLET PO SCH (05:33)
[2020-02-24 07:35] VITALS: BP 120/75
[2020-02-24] MEDS: ASPIRIN 81 MG TABLET EC PO SCH (08:17)
[2020-02-24] MEDS: LISINOPRIL 10 MG TABLET PO SCH (08:17)
[2020-02-24] MEDS: metFORMIN 500 MG TABLET PO SCH (08:17)
[2020-02-24] MEDS ORDERED: DIVA-59 PO (15:48)
[2020-02-24] MEDS ORDERED: PALI156D IM (15:48)
[2020-02-24] MEDS ORDERED: LEVO50TA PO (15:48)
[2020-02-24 19:19] VITALS: BP 152/81
[2020-02-24] MEDS: ATORVASTATIN 80 MG TABLET PO SCH (20:50)
[2020-02-24] MEDS: DIVALPROEX 250 MG TABLET.DR PO SCH (20:50)
[2020-02-24] MEDS: hydrOXyzine 50MG TABLET PO PRN (23:29)
[2020-02-25] MEDS: LEVOTHYROXINE 50 MCG TABLET PO SCH (06:02)
[2020-02-25 07:00] VITALS: BP 117/73
[2020-02-25] MEDS: LISINOPRIL 10 MG TABLET PO SCH (08:58)
[2020-02-25] MEDS: metFORMIN 500 MG TABLET PO SCH (08:58)
[2020-02-25] MEDS: ASPIRIN 81 MG TABLET EC PO SCH (08:58)
== END 2020-02-25 10:05 | disposition home or self-care (01) | DRG 750 ==
LOC: 3E 10:32
PROVIDERS: ADMIT Psychiatry & Neurology Psychosomatic Medicine; ATTEND Psychiatry & Neurology Psychosomatic Medicine
DX: F25.0 Schizoaffective disorder, bipolar type (principal); G47.00 Insomnia, unspecified; E78.5 Hyperlipidemia, unspecified; E11.9 Type 2 diabetes mellitus without complications; E03.9 Hypothyroidism, unspecified; I10 Essential (primary) hypertension; I25.10 Atherosclerotic heart disease of native coronary artery without angina pectoris; K59.00 Constipation, unspecified; Z79.82 Long term (current) use of aspirin; Z79.84 Long term (current) use of oral hypoglycemic drugs; Z79.890 Hormone replacement therapy; Z79.899 Other long term (current) drug therapy
CPT/HCPCS: 36415; 80053; 80061; 80307; 81003; 84439; 84443; 85025; 93005; 99285; J2426

== ENCOUNTER 2020-03-20 03:03 | Emergency (ER) | payer MEDICAID ==
[~2020-03-20] VITALS: Ht 177.8 cm; Wt 82.4 kg
[~2020-03-20 03:03] MED LIST changes: +CARI3CAP PO; +DIVA-59 PO; +ESCI10TA10 PO; +ESCI20TA10 PO; +HALO5TAB5 PO; +LEVO50TA PO; +PALI156D IM; +TEMA30CA PO
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
[2020-03-20] MEDS ORDERED: IBUPROFEN 200 MG TABLET PO ONE (03:30)
[2020-03-20] MEDS ORDERED: IBUPROFEN 200 MG TABLET ONE (03:40)
--- NOTE | 2020-03-20 03:49 | NUR ---
PT MEDICATED PER OCT. PT RESTING COMFORTABLY IN [facility] WITH CALL LIGHT WITHIN REACH; ROSA.
[2020-03-20] MEDS ORDERED: KETOROLAC 30 MG/1 ML ONE (04:21)
[2020-03-20] MEDS ORDERED: KETOROLAC 30 MG/1 ML IVPush ONE (04:30)
--- NOTE | 2020-03-20 04:31 | NUR ---
PT MEDICATED PER MAR AT THIS TIME.
--- NOTE | 2020-03-20 04:57 | NUR ---
PT D/C WITH D/C SUMMARY. PIV D/C WITH TIP INTACT. PT AMBULATES TO REGISTRATION DESK WITH STEADY GAIT FOR D/C HOME. PT VSS AND UPDATED IN EMR.
[2020-03-20 04:59] VITALS: BP 134/85
== END 2020-03-20 05:12 | disposition home or self-care (01) ==
LOC: ED 03:33
DX: R07.89 Other chest pain (principal); R94.31 Abnormal electrocardiogram [ECG] [EKG]; I10 Essential (primary) hypertension; E11.9 Type 2 diabetes mellitus without complications
CPT/HCPCS: 71045; 93005; 96374; 99283; J1885

== ENCOUNTER 2020-08-04 17:45 | Emergency (ER) | payer MEDICAID ==
[~2020-08-04] VITALS: Ht 175.3 cm; Wt 91.0 kg
--- NOTE | 2020-08-04 17:55 | NUR ---
Report from EMS, SI- pt requesting L2k. Report to Renay HARRISON. sitter at bedside to assist
[2020-08-04 18:01] VITALS: BP 122/75
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
--- NOTE | 2020-08-04 18:05 | NUR ---
ROOM SECURED. CLOTHING IN ED LOCKER. LABS DRAWN. PT COOPERATIVE.
[2020-08-04] MEDS ORDERED: DOCU250C9 PO (18:15)
[2020-08-04] MEDS ORDERED: ESCI20TA PO (18:15)
[2020-08-04] MEDS ORDERED: CARI6CAP PO (18:15)
--- NOTE | 2020-08-04 18:18 | NUR ---
TO XR PER AMNA
[2020-08-04 18:25] LABS: BASOPHILS % (AUTO) 0 % (0-1); EOSINOPHILS % (AUTO) 0 % (1-7); LYMPHOCYTES % (AUTO) 22 % (22-44); MEAN CORPUSCULAR HEMOGLOBIN 32.2 pg (27.5-34.5); MEAN CORPUSCULAR HGB CONC 34.2 g/dL (33.2-36.2); MEAN PLATELET VOLUME 6.6 fL (7.4-10.4); MONOCYTES % (AUTO) 8 % (2-9); NEUTROPHILS % (AUTO) 69 % (42-75); PLATELET COUNT 309 x10^3/uL (130-400); RED BLOOD COUNT 4.05 x10^6/uL (4.38-5.82); RED CELL DISTRIBUTION WIDTH 13.3 % (9.4-14.8)
[2020-08-04 18:33] LABS: MD NO
[2020-08-04 18:36] LABS: ALBUMIN 3.8 g/dL (3.4-5.0); ANION GAP 6 mmol/L (5-15); CHLORIDE 103 mmol/L (98-107)
[2020-08-04 18:38] LABS: SALICYLATE LEVEL < 1.7 mg/dL (2.8-20.0)
[2020-08-04 18:39] LABS: ALANINE AMINOTRANSFERASE 19 U/L (12-78); ALKALINE PHOSPHATASE 50 U/L (45-117); BILIRUBIN,TOTAL 0.6 mg/dL (0.2-1.0); CREATININE 1.16 mg/dL (0.7-1.3); TOTAL PROTEIN 7.6 g/dL (6.4-8.2)
[2020-08-04 19:05] LABS: AMPHETAMINE SCREEN, URINE Negative (Negative); BARBITURATE SCREEN, URINE Negative (Negative); BENZODIAZEPINE SCREEN, URINE Negative (Negative); CANNABINOID SCREEN, URINE Negative (Negative); COCAINE SCREEN, URINE Negative (Negative); METHADONE SCREEN, URINE Negative (Negative); OPIATE SCREEN, URINE Negative (Negative)
--- NOTE | 2020-08-04 20:30 | NUR ---
PT DOZING W/ BLANKET COVERING HIS HEAD; EASILY AWAKENED. TELEMONITOR TO BS. SITTER OUTSIDE ROOM. ROOM REMAINS SECURE.
--- NOTE | 2020-08-04 21:23 | NUR ---
RESTING QUIETLY ON [facility]. SITTER OUTSIDE ROOM
--- NOTE | 2020-08-04 21:54 | NUR ---
PT REPORT TO HUNTER SOW. PT CARE TRANSFERRED.
--- NOTE | 2020-08-04 22:04 | NUR ---
Report from HUNTER Niño. Pt given dinner, turkey sandwhich water. Pt remains calm, cooperative. Tele psych at bedside.
--- NOTE | 2020-08-04 22:39 | NUR ---
Pt ate dinner, situated in bed. Sitter in line of site, will continue to monitor.
--- NOTE | 2020-08-05 00:59 | NUR ---
Pt awake, resting, RR equal and unlabored. Calm and cooperative, sitter in line of site.
--- NOTE | 2020-08-05 01:49 | NUR ---
Sleeping, RR equal and unlabored, blanket over head. Sitter in line of site. Will continue to monitor.
--- NOTE | 2020-08-05 01:53 | NUR ---
Packet faxed to [facility], [facility].
--- NOTE | 2020-08-05 02:27 | NUR ---
[facility] accepts. Dr. Conner. via Aleksandra.
--- NOTE | 2020-08-05 02:38 | NUR ---
Rapid covid swab done for admission to U. Swabbed and sent by this nurse.
--- NOTE | 2020-08-05 03:18 | NUR ---
U informed covid negative.
--- NOTE | 2020-08-05 03:25 | NUR ---
Report to estrellita kennedy on [facility]. pt and all belongigns from storage locker sent to [facility].
== END 2020-08-05 03:51 | disposition home or self-care (01) ==
LOC: ED 20:02
DX: F25.9 Schizoaffective disorder, unspecified (principal); Z20.828 Contact with and (suspected) exposure to other viral communicable diseases; R45.851 Suicidal ideations; R07.81 Pleurodynia; F32.9 Major depressive disorder, single episode, unspecified; F41.9 Anxiety disorder, unspecified; I10 Essential (primary) hypertension; E11.9 Type 2 diabetes mellitus without complications; Z87.891 Personal history of nicotine dependence
CPT/HCPCS: 36415; 71046; 80053; 80299; 80307; 80329; 85025; 87635; 99284; G0480

== ENCOUNTER 2020-08-05 02:40 | Inpatient (IN) | payer MEDICAID ==
[~2020-08-05] VITALS: Ht 175.3 cm; Wt 86.9 kg
[~2020-08-05 02:40] MED LIST changes: +CARI6CAP PO; +DOCU250C9 PO; +ESCI20TA5 PO
[2020-08-05] MEDS ORDERED: BISACODYL 10 MG SUPP PR PRN (03:00)
[2020-08-05] MEDS ORDERED: DOCUSATE 100 MG CAPSULE PO PRN (03:00)
[2020-08-05] MEDS ORDERED: ONDANSETRON ODT 4 MG PO PRN (03:00)
[2020-08-05] MEDS ORDERED: POLYETHYLENE GLYCOL 17 GM PACKET PO PRN (03:00)
[2020-08-05 04:22] VITALS: BP 116/71
[2020-08-05] MEDS ORDERED: ASPIRIN 81 MG TABLET EC PO SCH (07:00)
[2020-08-05 07:55] VITALS: BP 131/81
[2020-08-05 08:25] LABS: MICROSCOPIC NOT IND
[2020-08-05] MEDS ORDERED: POTASSIUM CHLORIDE 20 MEQ TAB.ER.PRT PO ONE (08:30)
[2020-08-05] MEDS: metFORMIN 500 MG TABLET PO SCH (08:35)
[2020-08-05] MEDS: ASPIRIN 81 MG TABLET EC PO SCH (08:35)
[2020-08-05] MEDS: LISINOPRIL 10 MG TABLET PO SCH (08:36)
[2020-08-05] MEDS: ACETAMINOPHEN 325 MG TABLET PO PRN (09:22)
[2020-08-05 10:05] LABS: CHOL/HDL RATIO 3.4; FREE T4 (FREE THYROXINE) 0.9 ng/dL (0.76-1.46); LDL/HDL RATIO 2.2 (0.5-3.0)
[2020-08-05] MEDS ORDERED: FLU VACC QS2020-21(6MOS UP)/PF 60MCG/0.5 ML SYR IM-VACC ONE (12:00)
[2020-08-05 19:30] VITALS: BP 125/90
[2020-08-05] MEDS: hydrOXyzine 50MG TABLET PO PRN (20:08)
[2020-08-05] MEDS: DIVALPROEX 250 MG TAB.ER.24H PO SCH (20:08)
[2020-08-05] MEDS: ATORVASTATIN 80 MG TABLET PO SCH (20:08)
[2020-08-06] MEDS: LEVOTHYROXINE 50 MCG TABLET PO SCH (06:03)
[2020-08-06 06:06] LABS: BASOPHILS % (AUTO) 1 % (0-1); EOSINOPHILS % (AUTO) 4 % (1-7); LYMPHOCYTES % (AUTO) 29 % (22-44); MEAN CORPUSCULAR HEMOGLOBIN 32.2 pg (27.5-34.5); MEAN CORPUSCULAR HGB CONC 33.9 g/dL (33.2-36.2); MEAN PLATELET VOLUME 6.3 fL (7.4-10.4); MONOCYTES % (AUTO) 11 % (2-9); NEUTROPHILS % (AUTO) 57 % (42-75); PLATELET COUNT 281 x10^3/uL (130-400); RED BLOOD COUNT 3.97 x10^6/uL (4.38-5.82); RED CELL DISTRIBUTION WIDTH 13.5 % (9.4-14.8)
[2020-08-06 06:07] LABS: MD NO
[2020-08-06 06:16] LABS: ALBUMIN 3.3 g/dL (3.4-5.0); ANION GAP 3 mmol/L (5-15); CALCIUM 8.8 mg/dL (8.5-10.1); CHLORIDE 109 mmol/L (98-107)
[2020-08-06 06:35] LABS: ALKALINE PHOSPHATASE 44 U/L (45-117); BILIRUBIN,TOTAL 0.4 mg/dL (0.2-1.0)
[2020-08-06 06:38] LABS: ALANINE AMINOTRANSFERASE 18 U/L (12-78); TOTAL PROTEIN 6.7 g/dL (6.4-8.2)
[2020-08-06 06:53] LABS: CREATININE 1.06 mg/dL (0.7-1.3)
[2020-08-06 07:31] VITALS: BP 118/73
[2020-08-06] MEDS: metFORMIN 500 MG TABLET PO SCH (08:31)
[2020-08-06] MEDS: LISINOPRIL 10 MG TABLET PO SCH (08:31)
[2020-08-06] MEDS: ASPIRIN 81 MG TABLET EC PO SCH (08:31)
[2020-08-06] MEDS: hydrOXyzine 50MG TABLET PO PRN (08:45)
[2020-08-06] MEDS: ACETAMINOPHEN 325 MG TABLET PO PRN ×2 (08:45→20:41)
[2020-08-06 19:50] VITALS: BP 127/90
[2020-08-06] MEDS: DIVALPROEX 250 MG TAB.ER.24H PO SCH (20:40)
[2020-08-06] MEDS: ATORVASTATIN 80 MG TABLET PO SCH (20:40)
[2020-08-07] MEDS: LEVOTHYROXINE 50 MCG TABLET PO SCH (06:12)
[2020-08-07 07:33] VITALS: BP 146/88
[2020-08-07] MEDS: ASPIRIN 81 MG TABLET EC PO SCH (08:26)
[2020-08-07] MEDS: metFORMIN 500 MG TABLET PO SCH (08:26)
[2020-08-07] MEDS: LISINOPRIL 10 MG TABLET PO SCH (08:27)
[2020-08-07 19:45] VITALS: BP 140/98
[2020-08-07] MEDS: CHLORHEXIDINE 15 ML UDC MM SCH (20:30)
[2020-08-07] MEDS: ATORVASTATIN 80 MG TABLET PO SCH (20:31)
[2020-08-07] MEDS: DIVALPROEX 250 MG TAB.ER.24H PO SCH (20:31)
[2020-08-08] MEDS: LEVOTHYROXINE 50 MCG TABLET PO SCH (05:37)
[2020-08-08 07:30] VITALS: BP 150/84
[2020-08-08] MEDS: metFORMIN 500 MG TABLET PO SCH (07:34)
[2020-08-08] MEDS: hydrOXyzine 50MG TABLET PO PRN (07:34)
[2020-08-08] MEDS: ASPIRIN 81 MG TABLET EC PO SCH (07:35)
[2020-08-08] MEDS: LISINOPRIL 10 MG TABLET PO SCH (07:35)
[2020-08-08] MEDS: CHLORHEXIDINE 15 ML UDC MM SCH ×3 (09:19→20:57)
[2020-08-08] MEDS ORDERED: PALIPERIDONE PALMITATE 156 MG/ML IM ONE (13:30)
[2020-08-08 20:00] VITALS: BP 144/84
[2020-08-08] MEDS: ATORVASTATIN 80 MG TABLET PO SCH (20:56)
[2020-08-08] MEDS: DIVALPROEX 250 MG TAB.ER.24H PO SCH (20:56)
[2020-08-09] MEDS: LEVOTHYROXINE 50 MCG TABLET PO SCH (05:56)
[2020-08-09 07:35] VITALS: BP 140/75
[2020-08-09] MEDS: ASPIRIN 81 MG TABLET EC PO SCH (08:35)
[2020-08-09] MEDS: metFORMIN 500 MG TABLET PO SCH (08:35)
[2020-08-09] MEDS: LISINOPRIL 10 MG TABLET PO SCH (08:35)
[2020-08-09] MEDS: CHLORHEXIDINE 15 ML UDC MM SCH ×3 (09:31→20:27)
[2020-08-09] MEDS ORDERED: LISI-167 PO (16:09)
[2020-08-09] MEDS ORDERED: HYDR50TA99 PO (16:09)
[2020-08-09] MEDS ORDERED: LEVO50TA PO (16:09)
[2020-08-09] MEDS ORDERED: ASPI81TA45 PO (16:09)
[2020-08-09] MEDS ORDERED: DIVA250T PO (16:09)
[2020-08-09] MEDS ORDERED: METF500T PO (16:09)
[2020-08-09] MEDS ORDERED: MELA3TAB31 PO (16:09)
[2020-08-09] MEDS ORDERED: ATOR-2 PO (16:09)
[2020-08-09 20:00] VITALS: BP 136/80
[2020-08-09] MEDS: DIVALPROEX 250 MG TAB.ER.24H PO SCH (20:27)
[2020-08-09] MEDS: ATORVASTATIN 80 MG TABLET PO SCH (20:27)
[2020-08-09] MEDS: hydrOXyzine 50MG TABLET PO PRN (23:25)
[2020-08-10] MEDS: LEVOTHYROXINE 50 MCG TABLET PO SCH (06:04)
[2020-08-10 07:40] VITALS: BP 145/96
[2020-08-10] MEDS: metFORMIN 500 MG TABLET PO SCH (08:00)
[2020-08-10] MEDS: ASPIRIN 81 MG TABLET EC PO SCH (08:21)
[2020-08-10] MEDS: CHLORHEXIDINE 15 ML UDC MM SCH (08:21)
[2020-08-10] MEDS: LISINOPRIL 10 MG TABLET PO SCH (08:22)
== END 2020-08-10 14:10 | disposition home or self-care (01) | DRG 750 ==
LOC: 3E 03:51
PROVIDERS: ADMIT Psychiatry & Neurology Psychosomatic Medicine; ATTEND Psychiatry & Neurology Psychosomatic Medicine
DX: F25.0 Schizoaffective disorder, bipolar type (principal); F41.9 Anxiety disorder, unspecified; E03.9 Hypothyroidism, unspecified; E11.9 Type 2 diabetes mellitus without complications; E78.5 Hyperlipidemia, unspecified; R45.851 Suicidal ideations; Z88.0 Allergy status to penicillin; I25.10 Atherosclerotic heart disease of native coronary artery without angina pectoris; I10 Essential (primary) hypertension; G47.00 Insomnia, unspecified; Z79.82 Long term (current) use of aspirin; Z79.84 Long term (current) use of oral hypoglycemic drugs; Z79.899 Other long term (current) drug therapy
CPT/HCPCS: 36415; 80053; 80061; 81003; 82607; 84439; 84443; 85025; 90686; 93005; J2426

== ENCOUNTER 2020-08-31 10:39 | Emergency (ER) | payer MEDICAID ==
[~2020-08-31] VITALS: Ht 175.3 cm; Wt 75.0 kg
--- NOTE | 2020-08-31 11:10 | NUR ---
PT BIB EMS FOR SUICIDAL FEEELINGS AND HALLUCINATIONS, NO PLAN CURRENTLY. PT STATES HE HAS A CHANGE IN MEDS AND THAT MAY BE WHY HE FEELS THIS WAY. PT ALSO STATES HE HAS LOST HIS SENSE OF TASTE/SMELL, COUGH, HEADACHE, NAUSEA, DIARRHEA, AND ABD PAIN.
[2020-08-31 11:12] VITALS: BP 146/99
[2020-08-31] MEDS ORDERED: LORazepam 1MG TABLET PO ONE (11:30)
--- NOTE | 2020-08-31 11:31 | NUR ---
ROOM SECURED. BELONGINGS PLACED IN LOCKER. SITTER OUTSIDE THE ROOM IN FULL VIEW.
--- NOTE | 2020-08-31 11:50 | NUR ---
PT LUNCH TRAY DELIVERED
[2020-08-31 12:02] LABS: BASOPHILS % (AUTO) 1 % (0-1); EOSINOPHILS % (AUTO) 0 % (1-7); LYMPHOCYTES % (AUTO) 14 % (22-44); MEAN CORPUSCULAR HEMOGLOBIN 31.9 pg (27.5-34.5); MEAN PLATELET VOLUME 6.7 fL (7.4-10.4); MONOCYTES % (AUTO) 6 % (2-9); NEUTROPHILS % (AUTO) 79 % (42-75); PLATELET COUNT 311 x10^3/uL (130-400); RED BLOOD COUNT 4.39 x10^6/uL (4.38-5.82); RED CELL DISTRIBUTION WIDTH 13.7 % (9.4-14.8)
[2020-08-31 12:05] LABS: MD NO
[2020-08-31 12:13] LABS: ALBUMIN 4.1 g/dL (3.4-5.0); CALCIUM 9.1 mg/dL (8.5-10.1); CHLORIDE 107 mmol/L (98-107); CREATININE 1.04 mg/dL (0.7-1.3)
[2020-08-31 12:30] LABS: ANION GAP 7 mmol/L (5-15)
[2020-08-31 12:32] LABS: SALICYLATE LEVEL < 1.7 mg/dL (2.8-20.0)
[2020-08-31] MEDS ORDERED: PALIPERIDONE 3 MG TAB.ER.24 PO ONE (13:30)
--- NOTE | 2020-08-31 14:43 | NUR ---
PT RESTING ON ED GURNEY ON SIDE, EYES CLOSED. EVEN RISE AND FALL OF CHEST NOTED.
--- NOTE | 2020-08-31 16:13 | NUR ---
REPORT GIVEN TO HUNTER RIVERA
== END 2020-08-31 16:53 | disposition other institution (70) ==
LOC: ED 11:25
DX: R45.851 Suicidal ideations (principal); Z20.822 Contact with and (suspected) exposure to COVID-19; F32.9 Major depressive disorder, single episode, unspecified; R44.0 Auditory hallucinations; R53.83 Other fatigue; I10 Essential (primary) hypertension; E11.9 Type 2 diabetes mellitus without complications
CPT/HCPCS: 36415; 80048; 80299; 80320; 80329; 82040; 85025; 87635; 99283; 99284; G0480

== ENCOUNTER 2020-08-31 14:43 | Inpatient (IN) | payer MEDICAID ==
[~2020-08-31] VITALS: Ht 175.3 cm; Wt 86.8 kg
[~2020-08-31 14:43] MED LIST changes: -ESCI20TA5 PO; +ESCI20TA8 PO; +LISI10TA19 PO; -LISI10TA2 PO
[2020-08-31] MEDS ORDERED: BISACODYL 10 MG SUPP PR PRN (15:30)
[2020-08-31] MEDS ORDERED: ONDANSETRON ODT 4 MG PO PRN (15:30)
[2020-08-31] MEDS ORDERED: DOCUSATE 100 MG CAPSULE PO PRN (15:30)
[2020-08-31] MEDS ORDERED: POLYETHYLENE GLYCOL 17 GM PACKET PO PRN (15:30)
[2020-08-31 17:37] VITALS: BP 163/101
[2020-08-31 18:00] VITALS: BP 160/107
[2020-08-31] MEDS ORDERED: PLEASE ENTER HEIGHT AND WEIGHT MC SCH (18:00)
[2020-08-31 20:04] VITALS: BP 148/92
[2020-08-31] MEDS: MELATONIN 3 MG TABLET PO SCH (20:11)
[2020-08-31] MEDS: hydrOXyzine 50MG TABLET PO PRN (20:11)
[2020-08-31] MEDS: ATORVASTATIN 80 MG TABLET PO SCH (20:12)
[2020-08-31] MEDS ORDERED: DIVALPROEX 250 MG TAB.ER.24H PO SCH (21:00)
[2020-09-01] MEDS: LEVOTHYROXINE 50 MCG TABLET PO SCH (06:10)
[2020-09-01 07:17] VITALS: BP 121/72
[2020-09-01] MEDS: ASPIRIN 81 MG TABLET EC PO SCH (08:25)
[2020-09-01] MEDS: LISINOPRIL 10 MG TABLET PO SCH (08:25)
[2020-09-01 14:10] LABS: TROPONIN I < 0.015 ng/mL (0.000-0.045)
[2020-09-01] MEDS: PALIPERIDONE 6 MG TAB.ER.24 PO SCH (14:51)
[2020-09-01 16:39] LABS: OCCULT BLOOD NEGATIVE (NEGATIVE)
[2020-09-01 19:03] LABS: TROPONIN I < 0.015 ng/mL (0.000-0.045)
[2020-09-01 20:00] VITALS: BP 154/79
[2020-09-01] MEDS: MELATONIN 3 MG TABLET PO SCH (20:56)
[2020-09-01] MEDS: ATORVASTATIN 80 MG TABLET PO SCH (20:56)
[2020-09-02] MEDS: LEVOTHYROXINE 50 MCG TABLET PO SCH (06:41)
[2020-09-02 07:37] VITALS: BP 152/95
[2020-09-02] MEDS: LISINOPRIL 10 MG TABLET PO SCH (08:54)
[2020-09-02] MEDS: PALIPERIDONE 6 MG TAB.ER.24 PO SCH (08:54)
[2020-09-02] MEDS: ACETAMINOPHEN 325 MG TABLET PO PRN ×2 (08:54→19:41)
[2020-09-02] MEDS: ASPIRIN 81 MG TABLET EC PO SCH (08:54)
[2020-09-02] MEDS: metFORMIN 500 MG TABLET PO SCH (08:54)
[2020-09-02] MEDS: hydrOXyzine 50MG TABLET PO PRN ×2 (08:54→14:14)
[2020-09-02 10:07] LABS: % IRON SATURATION 17 % (20-55); IRON LEVEL 71 mcg/dL (65-175); TOTAL IRON BINDING CAPACITY 427 mcg/dL (250-450)
[2020-09-02 10:16] LABS: BASOPHILS % (AUTO) 1 % (0-1); EOSINOPHILS % (AUTO) 2 % (1-7); LYMPHOCYTES % (AUTO) 27 % (22-44); MEAN CORPUSCULAR HEMOGLOBIN 32.3 pg (27.5-34.5); MEAN CORPUSCULAR HGB CONC 34.2 g/dL (33.2-36.2); MEAN PLATELET VOLUME 6.9 fL (7.4-10.4); MONOCYTES % (AUTO) 11 % (2-9); NEUTROPHILS % (AUTO) 59 % (42-75); PLATELET COUNT 333 x10^3/uL (130-400); RED BLOOD COUNT 4.53 x10^6/uL (4.38-5.82); RED CELL DISTRIBUTION WIDTH 13.8 % (9.4-14.8)
[2020-09-02 10:17] LABS: MD NO
[2020-09-02 12:59] LABS: OCCULT BLOOD NEGATIVE (NEGATIVE)
[2020-09-02 19:30] VITALS: BP 143/80
[2020-09-02] MEDS: DIVALPROEX 500 MG TABLET.DR PO SCH (19:40)
[2020-09-02] MEDS: MELATONIN 3 MG TABLET PO SCH (19:40)
[2020-09-02] MEDS: ATORVASTATIN 80 MG TABLET PO SCH (19:41)
[2020-09-03] MEDS: LEVOTHYROXINE 50 MCG TABLET PO SCH (05:38)
[2020-09-03 07:16] VITALS: BP 140/85
[2020-09-03] MEDS: metFORMIN 500 MG TABLET PO SCH (08:07)
[2020-09-03] MEDS: PALIPERIDONE 3 MG TAB.ER.24 PO SCH (09:38)
[2020-09-03] MEDS: ASPIRIN 81 MG TABLET EC PO SCH (09:38)
[2020-09-03] MEDS: LISINOPRIL 10 MG TABLET PO SCH (09:38)
[2020-09-03 19:26] VITALS: BP 144/80
[2020-09-03] MEDS: ATORVASTATIN 80 MG TABLET PO SCH (19:57)
[2020-09-03] MEDS: MELATONIN 3 MG TABLET PO SCH (19:57)
[2020-09-03] MEDS: DIVALPROEX 500 MG TABLET.DR PO SCH (19:57)
[2020-09-04] MEDS: LEVOTHYROXINE 50 MCG TABLET PO SCH (05:25)
[2020-09-04 07:11] VITALS: BP 134/83
[2020-09-04] MEDS: metFORMIN 500 MG TABLET PO SCH (08:06)
[2020-09-04] MEDS: ASPIRIN 81 MG TABLET EC PO SCH (08:06)
[2020-09-04] MEDS: LISINOPRIL 10 MG TABLET PO SCH (08:06)
[2020-09-04] MEDS: PALIPERIDONE 3 MG TAB.ER.24 PO SCH (08:06)
[2020-09-04] MEDS ORDERED: PALI3TAB11 PO (11:01)
[2020-09-04] MEDS ORDERED: DIVA-61 PO (11:01)
[2020-09-04] MEDS ORDERED: METF500T PO (11:01)
[2020-09-04 19:45] VITALS: BP 129/88
[2020-09-04] MEDS: ATORVASTATIN 80 MG TABLET PO SCH (20:09)
[2020-09-04] MEDS: MELATONIN 3 MG TABLET PO SCH (20:09)
[2020-09-04] MEDS: DIVALPROEX 500 MG TABLET.DR PO SCH (20:09)
[2020-09-05] MEDS: LEVOTHYROXINE 50 MCG TABLET PO SCH (06:01)
[2020-09-05] MEDS: LISINOPRIL 10 MG TABLET PO SCH (07:39)
[2020-09-05] MEDS: ASPIRIN 81 MG TABLET EC PO SCH (07:39)
[2020-09-05] MEDS: metFORMIN 500 MG TABLET PO SCH (07:39)
[2020-09-05] MEDS: PALIPERIDONE 3 MG TAB.ER.24 PO SCH (07:39)
[2020-09-05 07:49] VITALS: BP 138/87
== END 2020-09-05 10:02 | disposition home or self-care (01) | DRG 750 ==
LOC: 3E 16:51
PROVIDERS: ADMIT Psychiatry & Neurology Psychosomatic Medicine; ATTEND Psychiatry & Neurology Psychosomatic Medicine
DX: F25.0 Schizoaffective disorder, bipolar type (principal); F41.9 Anxiety disorder, unspecified; G47.00 Insomnia, unspecified; I10 Essential (primary) hypertension; I25.10 Atherosclerotic heart disease of native coronary artery without angina pectoris; E78.5 Hyperlipidemia, unspecified; E03.9 Hypothyroidism, unspecified; E11.9 Type 2 diabetes mellitus without complications; Z79.82 Long term (current) use of aspirin; Z79.890 Hormone replacement therapy; Z79.899 Other long term (current) drug therapy; Z88.8 Allergy status to other drugs, medicaments and biological substances
CPT/HCPCS: 36415; 82272; 82962; 83540; 83550; 84443; 84484; 85025; 93005; 93306

== ENCOUNTER 2021-01-09 06:00 | Inpatient (IN) | payer MEDICAID ==
[~2021-01-09] VITALS: Ht 177.8 cm; Wt 85.2 kg
[~2021-01-09 06:00] MED LIST changes: +DIVA-61 PO; +PALI3TAB11 PO
[2021-01-09] MEDS ORDERED: POLYETHYLENE GLYCOL 17 GM PACKET PO PRN (07:30)
[2021-01-09] MEDS ORDERED: ONDANSETRON ODT 4 MG PO PRN (07:30)
[2021-01-09] MEDS ORDERED: DOCUSATE 100 MG CAPSULE PO PRN (07:30)
[2021-01-09] MEDS ORDERED: BISACODYL 10 MG SUPP PR PRN (07:30)
[2021-01-09 09:50] VITALS: BP 129/82
[2021-01-09] MEDS ORDERED: PLEASE ENTER HEIGHT AND WEIGHT MC SCH (10:00)
[2021-01-09] MEDS ORDERED: CHLO25TA PO (11:47)
[2021-01-09] MEDS ORDERED: LISI-170 PO (11:47)
[2021-01-09] MEDS ORDERED: HYDR50TA99 PO (11:47)
[2021-01-09] MEDS ORDERED: LEVO25TA4 PO (11:47)
[2021-01-09] MEDS ORDERED: TEMA30CA PO (11:47)
[2021-01-09] MEDS ORDERED: HALO10TA PO (11:47)
[2021-01-09 19:48] VITALS: BP 150/93
[2021-01-09] MEDS: OLANZAPINE 10 MG TABLET PO SCH (20:34)
[2021-01-09] MEDS: DIVALPROEX 500 MG TABLET.DR PO SCH (20:34)
[2021-01-09] MEDS: ACETAMINOPHEN 325 MG TABLET PO PRN (20:34)
[2021-01-09] MEDS: HYDROXYZINE PAMOATE 50MG CAP PO PRN (20:43)
[2021-01-10] MEDS: ASPIRIN 81 MG TABLET EC PO SCH (05:39)
[2021-01-10] MEDS: LEVOTHYROXINE 25 MCG TABLET PO SCH (05:39)
[2021-01-10 06:30] LABS: CHOL/HDL RATIO 4.7; FREE T4 (FREE THYROXINE) 0.99 ng/dL (0.76-1.46); LDL/HDL RATIO 2.8 (0.5-3.0)
[2021-01-10 07:59] VITALS: BP 130/81
[2021-01-10] MEDS: LISINOPRIL 10 MG TABLET PO SCH (09:38)
[2021-01-10] MEDS: metFORMIN 500 MG TABLET PO SCH (09:38)
[2021-01-10] MEDS: HYDROXYZINE PAMOATE 50MG CAP PO PRN ×2 (09:38→20:32)
[2021-01-10] MEDS: HALOPERIDOL 1 MG TABLET PO SCH (09:38)
[2021-01-10 19:43] VITALS: BP 107/66
[2021-01-10] MEDS: OLANZAPINE 10 MG TABLET PO SCH (20:32)
[2021-01-10] MEDS: DIVALPROEX 500 MG TABLET.DR PO SCH (20:32)
[2021-01-11] MEDS: ASPIRIN 81 MG TABLET EC PO SCH (05:56)
[2021-01-11] MEDS: LEVOTHYROXINE 25 MCG TABLET PO SCH (05:56)
[2021-01-11] MEDS: ACETAMINOPHEN 325 MG TABLET PO PRN (06:00)
[2021-01-11 07:51] VITALS: BP 101/55
[2021-01-11] MEDS: HALOPERIDOL 1 MG TABLET PO SCH (08:42)
[2021-01-11] MEDS: LISINOPRIL 10 MG TABLET PO SCH (08:42)
[2021-01-11] MEDS: metFORMIN 500 MG TABLET PO SCH (08:43)
== END 2021-01-11 15:30 | disposition home or self-care (01) | DRG 885 ==
LOC: 3E 09:35
PROVIDERS: ADMIT Psychiatry & Neurology Psychosomatic Medicine; ATTEND Psychiatry & Neurology Psychosomatic Medicine
DX: F25.0 Schizoaffective disorder, bipolar type (principal); E03.9 Hypothyroidism, unspecified; E11.9 Type 2 diabetes mellitus without complications; F41.9 Anxiety disorder, unspecified; F22 Delusional disorders; G40.909 Epilepsy, unspecified, not intractable, without status epilepticus; I10 Essential (primary) hypertension; Z79.82 Long term (current) use of aspirin; Z79.84 Long term (current) use of oral hypoglycemic drugs; Z79.899 Other long term (current) drug therapy; Z88.0 Allergy status to penicillin; Z56.0 Unemployment, unspecified; Z83.3 Family history of diabetes mellitus; Z87.891 Personal history of nicotine dependence; I25.10 Atherosclerotic heart disease of native coronary artery without angina pectoris
CPT/HCPCS: 36415; 80061; 82140; 84439; 84443; 93005

== ENCOUNTER 2021-01-27 21:02 | Emergency (ER) | payer MEDICAID ==
[~2021-01-27 21:02] MED LIST changes: +CHLO25TA PO; +HALO10TA PO; +LEVO25TA4 PO; +LISI-170 PO; +OLAN10TA69 PO; -OLAN10TA9 PO
[2021-01-27 21:36] LABS: BASOPHILS % (AUTO) 1 % (0-1); EOSINOPHILS % (AUTO) 2 % (1-7); LYMPHOCYTES % (AUTO) 33 % (22-44); MEAN CORPUSCULAR HEMOGLOBIN 30.8 pg (27.5-34.5); MEAN CORPUSCULAR HGB CONC 34.6 g/dL (33.2-36.2); MEAN PLATELET VOLUME 6.6 fL (7.4-10.4); MONOCYTES % (AUTO) 5 % (2-9); NEUTROPHILS % (AUTO) 59 % (42-75); PLATELET COUNT 333 x10^3/uL (130-400); RED BLOOD COUNT 4.66 x10^6/uL (4.38-5.82); RED CELL DISTRIBUTION WIDTH 12.5 % (9.4-14.8)
[2021-01-27 21:42] LABS: ANION GAP 5 mmol/L (5-15); CALCIUM 9.7 mg/dL (8.5-10.1); CHLORIDE 101 mmol/L (98-107); CREATININE 1.35 mg/dL (0.7-1.3)
--- NOTE | 2021-01-27 23:46 | NUR ---
pt presents to the ed complaining of numbness in his legs and dizziness. pt states it started this morning aroun 0800. pt walked back to room from the lobby with a steady gait. ekg performed at bedside and pt was placed on continuous monitoring. pt in gown, resting on gurney.
[2021-01-28 00:45] VITALS: BP 105/59
--- NOTE | 2021-01-28 00:46 | NUR ---
Patient given discharge instructions and they have confirmed that they understand the instructions. Patient ambulatory with steady gait.
== END 2021-01-28 00:47 | disposition home or self-care (01) ==
LOC: ED 23:52
DX: R42 Dizziness and giddiness (principal); R53.1 Weakness; R94.31 Abnormal electrocardiogram [ECG] [EKG]; E11.9 Type 2 diabetes mellitus without complications; I10 Essential (primary) hypertension; Z87.891 Personal history of nicotine dependence
CPT/HCPCS: 36415; 80048; 85025; 93005; 99284

== ENCOUNTER 2021-01-28 08:03 | Emergency (ER) | payer MEDICAID ==
[~2021-01-28] VITALS: Ht 177.8 cm; Wt 86.1 kg
[2021-01-28 08:15] VITALS: BP 115/69
--- NOTE | 2021-01-28 08:26 | NUR ---
REPEAT PHOTOCOMPOSING MACHINE OPERATOR: PT MOVED TO SEAT BY CHARGE AND THROUGHPUT, RN. PT IN DIRECT EYESIGHT OF BOTH.
--- NOTE | 2021-01-28 08:55 | NUR ---
PT AMBULATORY TO ROOM FROM WALL. PT CHANGED INTO GOWN, ALL BELONGINGS PLACED IN LOCKED LOCKER. PT IN SAFE ENVIRONMENT, SITTER IN VIEW. FOOD TRAY ORDERED. PT COOPERATIVE WITH STAFF.
[2021-01-28 09:20] LABS: BASOPHILS % (AUTO) 0 % (0-1); EOSINOPHILS % (AUTO) 2 % (1-7); LYMPHOCYTES % (AUTO) 30 % (22-44); MEAN CORPUSCULAR HEMOGLOBIN 30.4 pg (27.5-34.5); MEAN CORPUSCULAR HGB CONC 34.3 g/dL (33.2-36.2); MEAN PLATELET VOLUME 6.3 fL (7.4-10.4); MONOCYTES % (AUTO) 8 % (2-9); NEUTROPHILS % (AUTO) 60 % (42-75); PLATELET COUNT 319 x10^3/uL (130-400); RED BLOOD COUNT 4.75 x10^6/uL (4.38-5.82); RED CELL DISTRIBUTION WIDTH 12.5 % (9.4-14.8)
--- NOTE | 2021-01-28 09:20 | NUR ---
PT AMBULATORY TO BR WITH UPRIGHT STEADY GAIT. FOOD TRAY PROVIDED. PT COOPERATIVE AND CALM WITH ER STAFF. SITTER IN VIEW, PT IN SAFE ENVIRONMENT.
[2021-01-28 09:30] LABS: ALANINE AMINOTRANSFERASE 22 U/L (12-78); ALBUMIN 4.2 g/dL (3.4-5.0); ANION GAP 6 mmol/L (5-15); CALCIUM 9.6 mg/dL (8.5-10.1); CHLORIDE 102 mmol/L (98-107); CREATININE 1.17 mg/dL (0.7-1.3)
[2021-01-28 09:34] LABS: ALKALINE PHOSPHATASE 48 U/L (45-117); BILIRUBIN,TOTAL 0.7 mg/dL (0.2-1.0); TOTAL PROTEIN 8.3 g/dL (6.4-8.2)
[2021-01-28 09:37] LABS: SALICYLATE LEVEL < 1.7 mg/dL (2.8-20.0)
[2021-01-28 09:44] LABS: AMPHETAMINE SCREEN, URINE Negative (Negative); BARBITURATE SCREEN, URINE Negative (Negative); BENZODIAZEPINE SCREEN, URINE Positive (Negative); CANNABINOID SCREEN, URINE Negative (Negative); COCAINE SCREEN, URINE Negative (Negative); METHADONE SCREEN, URINE Negative (Negative); OPIATE SCREEN, URINE Negative (Negative)
--- NOTE | 2021-01-28 10:11 | NUR ---
SW AT BS
--- NOTE | 2021-01-28 11:10 | NUR ---
PT RESTING ON GURNEY, RESPIRATIONS EVEN AND UNLABORED. PT IN SAFE ENVIRONMENT, SITTER IN VIEW. ROSA
--- NOTE | 2021-01-28 11:54 | NUR ---
TASK RN: PT SLEEPING IN NAD, SITTER OUTSIDE OF ROOM FOR SAFETY MONITORING.
--- NOTE | 2021-01-28 12:08 | NUR ---
Patient given discharge instructions and they have confirmed that they understand the instructions. Patient ambulatory with steady gait. Pt DC with group activities aide.
== END 2021-01-28 12:11 | disposition home or self-care (01) ==
LOC: ED 11:03
DX: F20.89 Other schizophrenia (principal); I10 Essential (primary) hypertension; E11.9 Type 2 diabetes mellitus without complications
CPT/HCPCS: 36415; 80053; 80164; 80299; 80307; 80320; 80329; 85025; 99284; G0480

== ENCOUNTER 2021-03-17 06:40 | Inpatient (IN) | payer MEDICAID ==
[~2021-03-17] VITALS: Ht 185.4 cm; Wt 85.4 kg
[2021-03-17] MEDS ORDERED: ACETAMINOPHEN 325 MG TABLET PO PRN (10:30)
[2021-03-17] MEDS ORDERED: DOCUSATE 100 MG CAPSULE PO PRN (10:30)
[2021-03-17] MEDS ORDERED: BISACODYL 10 MG SUPP PR PRN (10:30)
[2021-03-17] MEDS ORDERED: POLYETHYLENE GLYCOL 17 GM PACKET PO PRN (10:30)
[2021-03-17] MEDS ORDERED: ONDANSETRON ODT 4 MG PO PRN (10:30)
[2021-03-17 10:35] VITALS: BP 130/55
[2021-03-17] MEDS ORDERED: PLEASE ENTER HEIGHT AND WEIGHT MC SCH (11:00)
[2021-03-17] MEDS ORDERED: CARI6CAP PO (11:33)
[2021-03-17] MEDS ORDERED: PALI234D IM (11:33)
[2021-03-17] MEDS ORDERED: TEMA30CA PO (11:33)
[2021-03-17] MEDS ORDERED: ESCI20TA8 PO (11:35)
[2021-03-17] MEDS ORDERED: OLANZAPINE 5 MG TABLET ONE (15:37)
[2021-03-17] MEDS ORDERED: OLANZAPINE 5 MG TABLET PO ONE (16:00)
[2021-03-17 18:34] VITALS: BP 148/90
[2021-03-17] MEDS: OLANZAPINE 10 MG TABLET PO SCH (20:25)
[2021-03-17] MEDS: HYDROXYZINE PAMOATE 50MG CAP PO PRN (20:25)
[2021-03-17] MEDS ORDERED: DIVALPROEX 500 MG TABLET.DR PO SCH (21:00)
[2021-03-18] MEDS: LEVOTHYROXINE 25 MCG TABLET PO SCH (05:18)
[2021-03-18] MEDS: ASPIRIN 81 MG TABLET EC PO SCH (05:18)
[2021-03-18 07:23] VITALS: BP 140/85
[2021-03-18] MEDS: INSULIN LISPRO 100 UNITS/ML, PEN SQ-INSULIN SCH ×4 (08:00→19:52)
[2021-03-18] MEDS: metFORMIN 500 MG TABLET PO SCH (08:53)
[2021-03-18] MEDS: CHLORTHALIDONE 25 MG TABLET PO SCH (08:54)
[2021-03-18] MEDS: LISINOPRIL 20 MG TABLET PO SCH (08:54)
[2021-03-18] MEDS: ESCITALOPRAM 10MG TABLET PO SCH (08:55)
[2021-03-18] MEDS: CARIPRAZINE 6 MG CAP PO SCH (08:56)
[2021-03-18] MEDS ORDERED: HALOPERIDOL 1 MG TABLET PO SCH (09:00)
[2021-03-18] MEDS ORDERED: LISINOPRIL 10 MG TABLET PO SCH (09:00)
[2021-03-18 19:45] VITALS: BP 135/80
[2021-03-18] MEDS: OLANZAPINE 10 MG TABLET PO SCH (19:51)
[2021-03-18] MEDS: HYDROXYZINE PAMOATE 50MG CAP PO PRN (19:51)
[2021-03-19] MEDS: ASPIRIN 81 MG TABLET EC PO SCH (06:00)
[2021-03-19] MEDS: LEVOTHYROXINE 25 MCG TABLET PO SCH (06:22)
[2021-03-19 06:42] LABS: MICROSCOPIC NOT IND
[2021-03-19 07:25] VITALS: BP 165/97
[2021-03-19] MEDS: metFORMIN 500 MG TABLET PO SCH (08:28)
[2021-03-19] MEDS: CHLORTHALIDONE 25 MG TABLET PO SCH (08:28)
[2021-03-19] MEDS: LISINOPRIL 20 MG TABLET PO SCH (08:28)
[2021-03-19] MEDS: ESCITALOPRAM 10MG TABLET PO SCH (08:28)
[2021-03-19] MEDS: CARIPRAZINE 6 MG CAP PO SCH (08:29)
[2021-03-19 18:44] VITALS: BP 136/80
[2021-03-19] MEDS: OLANZAPINE 10 MG TABLET PO SCH (20:12)
[2021-03-20] MEDS: ASPIRIN 81 MG TABLET EC PO SCH (06:00)
[2021-03-20] MEDS: LEVOTHYROXINE 25 MCG TABLET PO SCH (06:00)
[2021-03-20 07:27] VITALS: BP 131/87
[2021-03-20] MEDS: ESCITALOPRAM 10MG TABLET PO SCH (08:52)
[2021-03-20] MEDS: CHLORTHALIDONE 25 MG TABLET PO SCH (08:52)
[2021-03-20] MEDS: metFORMIN 500 MG TABLET PO SCH (08:52)
[2021-03-20] MEDS: LISINOPRIL 20 MG TABLET PO SCH (08:53)
[2021-03-20] MEDS: CARIPRAZINE 6 MG CAP PO SCH (08:57)
[2021-03-20 19:34] VITALS: BP 124/80
[2021-03-20] MEDS: OLANZAPINE 10 MG TABLET PO SCH (20:12)
[2021-03-21] MEDS: LEVOTHYROXINE 25 MCG TABLET PO SCH (05:38)
[2021-03-21] MEDS: ASPIRIN 81 MG TABLET EC PO SCH (05:38)
[2021-03-21 06:31] VITALS: BP 109/65
[2021-03-21] MEDS: CHLORTHALIDONE 25 MG TABLET PO SCH (08:53)
[2021-03-21] MEDS: ESCITALOPRAM 10MG TABLET PO SCH (08:53)
[2021-03-21] MEDS: LISINOPRIL 20 MG TABLET PO SCH (08:53)
[2021-03-21] MEDS: metFORMIN 500 MG TABLET PO SCH (08:53)
[2021-03-21] MEDS: CARIPRAZINE 6 MG CAP PO SCH (08:54)
[2021-03-21 19:38] VITALS: BP 125/76
[2021-03-21] MEDS: OLANZAPINE 10 MG TABLET PO SCH (21:20)
[2021-03-22] MEDS: ASPIRIN 81 MG TABLET EC PO SCH (05:57)
[2021-03-22] MEDS: LEVOTHYROXINE 25 MCG TABLET PO SCH (05:57)
[2021-03-22 07:24] VITALS: BP 120/82
[2021-03-22] MEDS: LISINOPRIL 20 MG TABLET PO SCH (08:47)
[2021-03-22] MEDS: metFORMIN 500 MG TABLET PO SCH (08:47)
[2021-03-22] MEDS: CHLORTHALIDONE 25 MG TABLET PO SCH (08:47)
[2021-03-22] MEDS: CARIPRAZINE 6 MG CAP PO SCH (08:48)
[2021-03-22] MEDS: ESCITALOPRAM 10MG TABLET PO SCH (08:48)
[2021-03-22 19:43] VITALS: BP 109/72
[2021-03-22] MEDS: OLANZAPINE 10 MG TABLET PO SCH (19:56)
[2021-03-23] MEDS: LEVOTHYROXINE 25 MCG TABLET PO SCH (05:56)
[2021-03-23] MEDS: ASPIRIN 81 MG TABLET EC PO SCH (05:56)
[2021-03-23 07:15] VITALS: BP 115/78
[2021-03-23] MEDS: metFORMIN 500 MG TABLET PO SCH (08:58)
[2021-03-23] MEDS: ESCITALOPRAM 10MG TABLET PO SCH (09:03)
[2021-03-23] MEDS: LISINOPRIL 20 MG TABLET PO SCH (09:03)
[2021-03-23] MEDS: CHLORTHALIDONE 25 MG TABLET PO SCH (09:03)
[2021-03-23] MEDS: CARIPRAZINE 6 MG CAP PO SCH (09:05)
[2021-03-23] MEDS ORDERED: CARI6CAP PO (09:48)
[2021-03-23] MEDS ORDERED: ESCI20TA8 PO (09:48)
[2021-03-23] MEDS ORDERED: PALI234D IM (09:48)
== END 2021-03-23 11:00 | disposition home or self-care (01) | DRG 885 ==
LOC: 3E 10:32
PROVIDERS: ADMIT Psychiatry & Neurology Psychosomatic Medicine; ATTEND Psychiatry & Neurology Psychosomatic Medicine
DX: F25.0 Schizoaffective disorder, bipolar type (principal); R45.851 Suicidal ideations; F17.200 Nicotine dependence, unspecified, uncomplicated; E78.5 Hyperlipidemia, unspecified; E03.9 Hypothyroidism, unspecified; Z20.822 Contact with and (suspected) exposure to COVID-19; F41.9 Anxiety disorder, unspecified; E11.9 Type 2 diabetes mellitus without complications; G40.909 Epilepsy, unspecified, not intractable, without status epilepticus; G47.00 Insomnia, unspecified; I10 Essential (primary) hypertension; I25.10 Atherosclerotic heart disease of native coronary artery without angina pectoris; Z56.0 Unemployment, unspecified; Z79.82 Long term (current) use of aspirin; Z79.84 Long term (current) use of oral hypoglycemic drugs; Z79.899 Other long term (current) drug therapy
CPT/HCPCS: 81003; 82962; 93005; U0005; U0003